=== PATIENT | female | born 1935 | race Caucasian/White ===

== ENCOUNTER 2019-03-23 08:35 | Emergency (ER) | payer MEDICARE, OTHER ==
[2019-03-23 13:08] LABS: ADD MAN DIFF? NO
[2019-03-23 13:09] LABS: WHITE BLOOD COUNT 7.2 10^3/ul (4.8-10.8)
[2019-03-23 13:09] LABS: BASOPHILS % 0.4 % (0.0-2.0); EOSINOPHILS # 0.1 10^3/ul (0.0-0.5); EOSINOPHILS % 1.5 % (0.0-7.0); HEMATOCRIT 40.4 % (37.0-47.0); HEMOGLOBIN 13.6 g/dl (12.0-16.0); LYMPHOCYTES # 2.2 10^3/ul (0.8-2.9); LYMPHOCYTES % 30.1 % (15.0-51.0); MEAN CORPUSCULAR HEMOGLOBIN 30.9 pg (29.0-33.0); MEAN CORPUSCULAR HGB CONC 33.7 g/dl (32.0-37.0); MEAN CORPUSCULAR VOLUME 91.8 fl (82.0-101.0); MEAN PLATELET VOLUME 9.4 fl (7.4-10.4); MONOCYTE # 0.6 10^3/ul (0.3-0.9); MONOCYTES % 8.5 % (0.0-11.0); NEUTROPHIL # 4.3 10^3/ul (1.6-7.5); NEUTROPHILS % 59.2 % (39.0-77.0); PLATELET COUNT 233 10^3/UL (140-415)
[2019-03-23 13:29] LABS: PROTIME 14.3 Sec (11.9-14.9); PT RATIO 1.1
[2019-03-23] MEDS: ONDANSETRON 4 MG INJ IV (13:29)
[2019-03-23] MEDS: morphine 2 MG INJ IV ×2 (13:29→14:48)
[2019-03-23 13:30] LABS: ALANINE AMINOTRANSFERASE 23 IU/L (13-69); ALBUMIN 4.5 g/dl (3.3-4.9); ALBUMIN/GLOBULIN RATIO 1.36; ALKALINE PHOSPHATASE 37 IU/L (42-121); ANION GAP 11 (5-13); ASPARTATE AMINO TRANSFERASE 32 IU/L (15-46); BILIRUBIN,INDIRECT 1.2 mg/dl (0-1.1); BILIRUBIN,TOTAL 1.2 mg/dl (0.2-1.3); BLOOD UREA NITROGEN 21 mg/dl (7-20); CARBON DIOXIDE 27 mmol/L (21-31); CHLORIDE 96 mmol/L (97-110); CREATININE 0.73 mg/dl (0.44-1.00); GLUCOSE 93 mg/dl (70-220); PARTIAL THROMBOPLASTIN TIME 33.9 Sec (23.0-35.0); POTASSIUM 3.3 mmol/L (3.5-5.1); SODIUM 134 mmol/L (135-144); TOTAL PROTEIN 7.8 g/dl (6.1-8.1)
[2019-03-23 13:40] LABS: TROPONIN-I < 0.012 ng/ml (0.000-0.120)
[2019-03-23] MEDS: SOD CHLORIDE 0.9% 100 ML (14:16)
[2019-03-23] MEDS: IOHEXOL 100 ML (14:17)
[2019-03-23] MEDS: POTASSIUM CHLORIDE (SR) 20 MEQ TAB PO (14:48)
[2019-03-23] MEDS: SOD CHLORIDE 0.9% 1,000 ML IV (14:49)
[2019-03-23] MEDS: traMADol 50 MG TAB PO (17:31)
== END 2019-03-23 17:37 | disposition home or self-care (01) ==
LOC: FTE 08:35
DX: M54.6 Pain in thoracic spine (principal); I10 Essential (primary) hypertension; R07.9 Chest pain, unspecified
CPT/HCPCS: 36415; 71275; 72128; 72131; 80053; 84484; 85025; 85610; 85730; 93005; 96374; 96375; 96376; 99285-25

== ENCOUNTER 2019-03-28 20:01 | Emergency (ER) | payer MEDICARE, OTHER ==
[2019-03-28] MEDS: ONDANSETRON 4 MG INJ IV (21:27)
[2019-03-28] MEDS: BISACODYL 10 MG SUPP PR (21:27)
[2019-03-28 21:41] LABS: URINE BLOOD (Dip) POC Negative (NEGATIVE); URINE GLUCOSE (Dip) POC Negative (NEGATIVE); URINE KETONES (Dip) POC 1+ (NEGATIVE); URINE LEUKOCYTE EST (Dip) POC Negative (NEGATIVE); URINE NITRITE (Dip) POC Negative (NEGATIVE); URINE TOTAL PROTEIN POC 1+ (NEGATIVE)
[2019-03-28 21:41] LABS: URINE PH (Dip) POC >=9.0 (5.0-8.5)
[2019-03-28 21:53] LABS: ADD MAN DIFF? NO
[2019-03-28 21:55] LABS: BASOPHILS % 0.2 % (0.0-2.0); EOSINOPHILS % 0.1 % (0.0-7.0); HEMATOCRIT 39.9 % (37.0-47.0); HEMOGLOBIN 13.2 g/dl (12.0-16.0); LYMPHOCYTES % 10.7 % (15.0-51.0); MEAN CORPUSCULAR HEMOGLOBIN 30.8 pg (29.0-33.0); MEAN CORPUSCULAR HGB CONC 33.1 g/dl (32.0-37.0); MEAN CORPUSCULAR VOLUME 93.2 fl (82.0-101.0); MONOCYTE # 0.5 10^3/ul (0.3-0.9); MONOCYTES % 5.4 % (0.0-11.0); NEUTROPHIL # 7.4 10^3/ul (1.6-7.5); NEUTROPHILS % 83.2 % (39.0-77.0); PLATELET COUNT 291 10^3/UL (140-415); RED BLOOD COUNT 4.28 10^6/ul (4.20-5.40)
[2019-03-28 21:55] LABS: WHITE BLOOD COUNT 8.9 10^3/ul (4.8-10.8)
[2019-03-28 22:04] LABS: ALANINE AMINOTRANSFERASE 29 IU/L (13-69); ALBUMIN 4.1 g/dl (3.3-4.9); ALBUMIN/GLOBULIN RATIO 1.17; ALKALINE PHOSPHATASE 59 IU/L (42-121); ANION GAP 8 (5-13); ASPARTATE AMINO TRANSFERASE 40 IU/L (15-46); BILIRUBIN,INDIRECT 0.6 mg/dl (0-1.1); BILIRUBIN,TOTAL 0.6 mg/dl (0.2-1.3); BLOOD UREA NITROGEN 20 mg/dl (7-20); CALCIUM 9.6 mg/dl (8.4-10.2); CARBON DIOXIDE 32 mmol/L (21-31); CHLORIDE 97 mmol/L (97-110); CREATININE 0.81 mg/dl (0.44-1.00); GLUCOSE 159 mg/dl (70-220); LIPASE 59 U/L (23-300); POTASSIUM 3.5 mmol/L (3.5-5.1); SODIUM 137 mmol/L (135-144); TOTAL PROTEIN 7.6 g/dl (6.1-8.1)
[2019-03-28] MEDS: NA PHOSPHATE/BIPHOS 133 ML ENEMA PR (23:18)
== END 2019-03-28 23:51 | disposition home or self-care (01) ==
LOC: E/R 23:51
DX: K59.00 Constipation, unspecified (principal); R11.10 Vomiting, unspecified; I10 Essential (primary) hypertension; Z79.01 Long term (current) use of anticoagulants
CPT/HCPCS: 36415; 74176; 80053; 81003; 83690; 85025; 96374; 99285-25